=== PATIENT | female | born 2000 | race Caucasian/White ===

== ENCOUNTER 2021-01-25 09:09 | Emergency (ER) | payer OTHER ==
[2021-01-25 09:19] VITALS: TEMP 97.8
[2021-01-25] MEDS ORDERED: HYDROmorphone 0.5 MG/0.5 ML SYRINGE IVP STA (09:39)
[2021-01-25] MEDS ORDERED: SODIUM CHLORIDE 0.9% 1,000 ML IV STA (09:39)
[2021-01-25] MEDS ORDERED: ONDANSETRON 4 MG/2 ML VIAL IVP STA (09:39)
--- NOTE | 2021-01-25 09:46 | ED ---
General Adult HPI - General Chief complaint: Abdominal Pain Stated complaint: abd pain Time Seen by Provider: 01/25/21 09:26 Source: patient Mode of arrival: ambulatory Limitations: no limitations - History of Present Illness Initial comments: 20-year-old female with a past medical history of cholelithiasis presents to the emergency room for abdominal pain. Patient states she was supposed to get her gallbladder removed 2 months ago but got Covid and then never followed up again to reschedule. Patient states this was done out of town and now she is living here. Patient states around 3 AM she started to get abdominal pain. She did take Motrin but it did not seem to help. Describes it as a sharp squeezing pain in the right upper quadrant. Patient denies any fevers or chills.Patient has no other complaints at this time including shortness of breath, chest pain, nausea or vomiting, headache, or visual changes. - Related Data Home Medications Medication Instructions Recorded Confirmed Citalopram Hydrobromide [CeleXA] 20 mg PO HS 01/25/21 01/25/21 Allergies Allergy/AdvReac Type Severity Reaction Status Date / Time No Known Allergies Allergy Verified 01/25/21 09:52 Review of Systems ROS Statement: Those systems with pertinent positive or pertinent negative responses have been documented in the HPI. ROS Other: All systems not noted in ROS Statement are negative. Past Medical History Additional Past Medical History / Comment(s): gallstones History of Any Multi-Drug Resistant Organisms: None Reported Past Surgical History: No Surgical Hx Reported Past Psychological History: Depression Smoking Status: Never smoker Past Alcohol Use History: None Reported Past Drug Use History: None Reported General Exam Limitations: no limitations General appearance: alert, in no apparent distress Head exam: Present: atraumatic Eye exam: Present: normal appearance, PERRL, EOMI. Absent: scleral icterus, conjunctival injection ENT exam: Present: normal exam, mucous membranes moist Neck exam: Present: normal inspection, full ROM. Absent: tenderness Respiratory exam: Present: normal lung sounds bilaterally. Absent: respiratory distress, wheezes Cardiovascular Exam: Present: regular rate, normal rhythm, normal heart sounds GI/Abdominal exam: Present: soft, tenderness (Right upper quadrant and epigastric tenderness. No lower abdominal tenderness.), normal bowel sounds. Absent: distended, guarding, rebound Course Vital Signs 01/25/21 09:17 Temperature 97.8 F Pulse Rate 83 Respiratory 17 Rate Blood Pressure 125/83 O2 Sat by Pulse 99 Oximetry Medical Decision Making - Medical Decision Making Vitals are stable. Patient is well-appearing. CBC and CMP are unremarkable. Amylase and lipase are normal. Urinalysis does not show any evidence of . No signficant evidence of infection. Ultrasound does show biliary sludge and cholelithiasis without evidence for acute cholecystitis. Patient was given pain medication and did have improvement in pain. At this time patient can be discharged home with outpatient surgical follow-up. She will return here for any worsening symptoms or fevers. - Lab Data Result diagrams: 01/25/21 09:40 01/25/21 09:40 Lab Results 01/25/21 01/25/21 01/25/21 Range/Units 09:40 09:40 09:40 WBC 10.4 (3.8-10.6) k/uL RBC 4.91 (3.80-5.40) m/uL Hgb 14.4 (11.4-16.0) gm/dL Hct 43.6 (34.0-46.0) % MCV 88.8 (80.0-100.0) fL MCH 29.4 (25.0-35.0) pg MCHC 33.1 (31.0-37.0) g/dL RDW 13.8 (11.5-15.5) % Plt Count 310 (150-450) k/uL MPV 7.3 Neutrophils % 71 % Lymphocytes % 20 % Monocytes % 5 % Eosinophils % 1 % Basophils % 1 % Neutrophils # 7.4 (1.3-7.7) k/uL Lymphocytes # 2.1 (1.0-4.8) k/uL Monocytes # 0.5 (0-1.0) k/uL Eosinophils # 0.1 (0-0.7) k/uL Basophils # 0.1 (0-0.2) k/uL Sodium (137-145) mmol/L Potassium (3.5-5.1) mmol/L Chloride (98-107) mmol/L Carbon Dioxide (22-30) mmol/L Anion Gap mmol/L BUN (7-17) mg/dL Creatinine (0.52-1.04) mg/dL Est GFR (CKD-EPI)AfAm (>60 ml/min/1.73 sqM) Est GFR (CKD-EPI)NonAf (>60 ml/min/1.73 sqM) Glucose (74-99) mg/dL Plasma Lactic Acid [place] (0.7-2.0) mmol/L Calcium (8.4-10.2) mg/dL Total Bilirubin (0.2-1.3) mg/dL AST (14-36) U/L ALT (4-34) U/L Alkaline Phosphatase (38-126) U/L Total Protein (6.3-8.2) g/dL Albumin (3.5-5.0) g/dL Amylase (30-110) U/L Lipase (23-300) U/L Urine Color Yellow Urine Appearance Cloudy H (Clear) Urine pH 5.5 (5.0-8.0) Ur Specific [place] 1.018 (1.001-1.035) Urine Protein Negative (Negative) Urine Glucose (UA) Negative (Negative) Urine Ketones Negative (Negative) Urine Blood Negative (Negative) Urine Nitrite Negative (Negative) Urine Bilirubin Negative (Negative) Urine Urobilinogen <2.0 (<2.0) mg/dL Ur Leukocyte Esterase Large H (Negative) Urine RBC 4 (0-5) /hpf Urine WBC 6 H (0-5) /hpf Ur Squamous Epith Cells 10 H (0-4) /hpf Urine Bacteria Occasional H (None) /hpf Urine Mucus Rare H (None) /hpf Urine HCG, Qual Not Detected (Not Detectd) 01/25/21 01/25/21 Range/Units 09:40 09:40 WBC (3.8-10.6) k/uL RBC (3.80-5.40) m/uL Hgb (11.4-16.0) gm/dL Hct (34.0-46.0) % MCV (80.0-100.0) fL MCH (25.0-35.0) pg MCHC (31.0-37.0) g/dL RDW (11.5-15.5) % Plt Count (150-450) k/uL MPV Neutrophils % % Lymphocytes % % Monocytes % % Eosinophils % % Basophils % % Neutrophils # (1.3-7.7) k/uL Lymphocytes # (1.0-4.8) k/uL Monocytes # (0-1.0) k/uL Eosinophils # (0-0.7) k/uL Basophils # (0-0.2) k/uL Sodium 138 (137-145) mmol/L Potassium 4.4 (3.5-5.1) mmol/L Chloride 107 (98-107) mmol/L Carbon Dioxide 18 L (22-30) mmol/L Anion Gap 13 mmol/L BUN 14 (7-17) mg/dL Creatinine 0.52 (0.52-1.04) mg/dL Est GFR (CKD-EPI)AfAm >90 (>60 ml/min/1.73 sqM) Est GFR (CKD-EPI)NonAf >90 (>60 ml/min/1.73 sqM) Glucose 115 H (74-99) mg/dL Plasma Lactic Acid [place]hang 1.3 (0.7-2.0) mmol/L Calcium 9.9 (8.4-10.2) mg/dL Total Bilirubin 0.4 (0.2-1.3) mg/dL AST 26 (14-36) U/L ALT 20 (4-34) U/L Alkaline Phosphatase 79 (38-126) U/L Total Protein 7.9 (6.3-8.2) g/dL Albumin 4.5 (3.5-5.0) g/dL Amylase 52 (30-110) U/L Lipase 85 (23-300) U/L Urine Color Urine Appearance (Clear) Urine pH (5.0-8.0) Ur Specific [place] (1.001-1.035) Urine Protein (Negative) Urine Glucose (UA) (Negative) Urine Ketones (Negative) Urine Blood (Negative) Urine Nitrite (Negative) Urine Bilirubin (Negative) Urine Urobilinogen (<2.0) mg/dL Ur Leukocyte Esterase (Negative) Urine RBC (0-5) /hpf Urine WBC (0-5) /hpf Ur Squamous Epith Cells (0-4) /hpf Urine Bacteria (None) /hpf Urine Mucus (None) /hpf Urine HCG, Qual (Not Detectd) Disposition Clinical Impression: Cholelithiasis Disposition: HOME SELF-CARE Condition: Good Instructions (If sedation given, give patient instructions): Low Fat Diet (ED), Gallstones (ED) Additional Instructions: Please call surgeon first thing tomorrow morning for an appointment. Continue to take Motrin and Tylenol for pain. Stick to a low-fat diet as fatty foods w ill trigger pain. Return to the emergency room for worsening symptoms. Is patient prescribed a controlled substance at d/c from ED?: No Referrals: Keren Luong DO [Doctor of Osteopathic Medicine] - 1-2 days Time of Disposition: 11:07
[2021-01-25 09:50] LABS: Basophils # (A) 0.1 k/uL (0-0.2); Basophils % (A) 1 %; Eosinophils # (A) 0.1 k/uL (0-0.7); Eosinophils % (A) 1 %; HCT 43.6 % (34.0-46.0); HGB 14.4 gm/dL (11.4-16.0); Lymphocytes # (A) 2.1 k/uL (1.0-4.8); Lymphocytes % (A) 20 %; MCH 29.4 pg (25.0-35.0); MCHC 33.1 g/dL (31.0-37.0); MCV 88.8 fL (80.0-100.0); Mean Platelet Volume 7.3; Monocytes # (A) 0.5 k/uL (0-1.0); Monocytes % (A) 5 %; Neutrophils # (A) 7.4 k/uL (1.3-7.7); Neutrophils % (A) 71 %; Platelet Count 310 k/uL (150-450); RBC 4.91 m/uL (3.80-5.40); RDW 13.8 % (11.5-15.5); WBC 10.4 k/uL (3.8-10.6)
[2021-01-25 10:04] LABS: ALT 20 U/L (4-34); African American GFR (CKD) >90 (>60 ml/min/1.73 sqM); Albumin 4.5 g/dL (3.5-5.0); Amylase 52 U/L (30-110); Anion Gap 13 mmol/L; Blood Urea Nitrogen 14 mg/dL (7-17); Calcium 9.9 mg/dL (8.4-10.2); Carbon Dioxide 18 mmol/L (22-30); Chloride 107 mmol/L (98-107); Glucose 115 mg/dL (74-99); Lipase 85 U/L (23-300); Non-African American GFR(CKD) >90 (>60 ml/min/1.73 sqM); Sodium 138 mmol/L (137-145); Total Bilirubin 0.4 mg/dL (0.2-1.3); Total Protein 7.9 g/dL (6.3-8.2)
[2021-01-25 10:15] LABS: AST 26 U/L (14-36); Alkaline Phosphatase 79 U/L (38-126); Potassium 4.4 mmol/L (3.5-5.1)
[2021-01-25 10:18] LABS: Appearance,Urine Cloudy (Clear); Bacteria,Urine Occasional /hpf; Bilirubin,Urine Negative (Negative); Blood,Urine Negative (Negative); Color,Urine Yellow; Glucose,Urine (UA) Negative (Negative); Ketones,Urine Negative (Negative); Leukocyte Esterase,Urine Large (Negative); Mucus,Urine Rare /hpf; Nitrite,Urine Negative (Negative); PH, Urine 5.5 (5.0-8.0); Protein,Urine Negative (Negative); RBC,Urine 4 /hpf (0-5); Specific Gravity,Urine 1.018 (1.001-1.035); Squamous Epithelial Cell,Urine 10 /hpf (0-4); Urobilinogen,Urine <2.0 mg/dL (<2.0); WBC,Urine 6 /hpf (0-5)
--- NOTE | 2021-01-25 10:30 | US ---
EXAMINATION TYPE: US gallbladder DATE OF EXAM: 01/25/2021 COMPARISON: NONE CLINICAL HISTORY: pain. EXAM MEASUREMENTS: Liver Length: 14.7 cm Gallbladder Wall: 0.2 cm CBD: 0.5 cm Right Kidney: 12.0 x 4.0 x 4.5 cm Pancreas: Portions visualized wnl, partially obscured by bowel gas Liver: wnl, unable to see dome due to body habitus Gallbladder: probable sludge, cholelithiasis without wall thickening Evidence for sonographic Turner's sign: no CBD: wnl Right Kidney: No hydronephrosis or masses as seen partially obscured by overlying bowel IMPRESSION: Biliary sludge and cholelithiasis without evidence for acute cholecystitis.
[2021-01-25 11:16] VITALS: BP 122/80; PULSE 77; RESP 18
== END 2021-01-25 11:16 | disposition home or self-care (01) ==
LOC: EC 09:09
DX: K80.20 Calculus of gallbladder without cholecystitis without obstruction (principal)
CPT/HCPCS: 36415; 80053; 82150; 83605; 83690; 85025; 81001; 81025; 76705; 99284; 96374; 96375; 96361; J2405; J1170

== ENCOUNTER 2021-09-19 15:34 | Outpatient (CLI) | payer OTHER ==
[2021-09-19 16:41] VITALS: BP 127/71; PULSE 96; RESP 18; TEMP 96.8
--- NOTE | 2021-09-20 09:07 | P.MSEPDOC ---
Presenting Problems - Arrival Data Date of Arrival on Unit: 09/19/21 Time of Arrival on Unit: 15:34 Mode of Transport: Ambulatory - Complaint OB-Reason for Admission/Chief Complaint: Pain Comment: right upper quadrant pain currently 4/10, pt states at 1400 was 10/10, pt was unable to stand, pt vomited x1 also. at this time pt resting in bed not in distress, on phone. pt states she just wanted to make sure everything was okay with the baby and but that she has a HX of gall bladder stones she was previously scheduled for cholecystectomy but procedure was cancelled due to her becoming . Pt states this pain feels the same as the gall bladder pain she has had in the past. Medical History - Information : 2 Para: 1 Term: 1 : 0 Abortions: Spontaneous or Elective: 0 Number of Living Children: 0 - Gestational Age Gestational Age by CHANDAN (wks/days): 29 Weeks and 5 Days - History Complications: No Care Review of Systems - Review of Systems Constitutional: No problems Breast: No problems ENT: No problems Cardiovascular: No problems Respiratory: No problems Gastrointestinal: No problems Genitourinary: No problems Musculoskeletal: No problems Neurological: No problems Skin: No problems Vital Signs - Temperature Temperature: 96.8 F Temperature Source: Temporal Artery Scan - Pulse Right Pulse Oximetery Pulse Rate: 96 Pulse Assessment Method: Pulse Oximetry - Respirations Respiratory Rate: 18 Oxygen Delivery Method: Room Air O2 Sat by Pulse Oximetry: 98 - Blood Pressure Right Arm Blood Pressure: 127/71 Blood Pressure Mean: 89 Blood Pressure Source: Automatic Cuff Medical Screen Scoring - Uterine Contractions Frequency From (mins): 0 Frequency To (mins): 0 - Assessment - Baby A Baseline FHR: 145 Heart Rate - NICHD Category: Category I (Normal) NST: Reactive Physician Notification - Physician Notified Physician Notified Date: 09/19/21 Physician Notified Time: 16:20 Physician: Tiara Dobbins Order Received: Yes (order to discharge patient with instructions for diet.) Maternal Triage Index - Maternal Triage Index Presenting for scheduled procedure w/no complaint: No - Stat/Priority 1 Stat Priority 1: No - Urgent/Priority 2 Urgent Priority 2: No - Prompt/Priority 3 Prompt Priority 3: No - Non-Urgent/Priority 4 Non-Urgent Priority 4: Yes Criteria Met for Priority 4: concerns for gall bladder pain Disposition - Disposition OB Disposition: Physician follow up in office, Discharge to home Discharge Date: 09/19/21 Discharge Time: 16:25 I agree with the RN Medical Screening Exam: Yes Case reviewed; plan agreed upon as documented in EMR&OBIX.: Yes Diagnosis: NONINFECTIVE GASTROENTERITIS AND COLITIS, UNSPECIFIED
== END 2021-09-19 16:25 | disposition home or self-care (01) ==
LOC: FBPOP 15:34
PROVIDERS: ATTEND Obstetrics & Gynecology
DX: O99.613 Diseases of the digestive system complicating pregnancy, third trimester (principal); K52.9 Noninfective gastroenteritis and colitis, unspecified; Z3A.29 29 weeks gestation of pregnancy; Z91.040 Latex allergy status
CPT/HCPCS: 59025; G0463; 99213

== ENCOUNTER 2021-11-24 05:58 | Inpatient (IN) | payer OTHER ==
[2021-11-24] MEDS ORDERED: CARBOPROST TROMETHAMINE 250 MCG/ML 1 ML AMP IM PRN (06:40)
[2021-11-24] MEDS ORDERED: TERBUTALINE 1 MG/ML VIAL SQ PRN (06:40)
[2021-11-24] MEDS ORDERED: OXYTOCIN 10 UNIT/ML 1 ML VIAL IM PRN (06:40)
[2021-11-24] MEDS ORDERED: LIDOCAINE 0.5% (PF) 5 MG/ML (50 ML SDV) SQ PRN (06:40)
[2021-11-24] MEDS ORDERED: METHYLERGONOVINE 0.2 MG/ML 1 ML AMP IM PRN (06:40)
[2021-11-24] MEDS ORDERED: OXYTOCIN 30 UNITS/500 ML NS 30 UNIT in SALINE 1 500ML.BAG IV SCH (06:45)
[2021-11-24] MEDS: LACTATED RINGERS 1,000 ML IV SCH ×2 (06:51→12:17)
[2021-11-24 07:25] LABS: Basophils % (A) 0 %; Eosinophils # (A) 0.1 k/uL (0-0.7); Eosinophils % (A) 1 %; HCT 36.4 % (34.0-46.0); HGB 12.5 gm/dL (11.4-16.0); Lymphocytes # (A) 2.1 k/uL (1.0-4.8); Lymphocytes % (A) 24 %; MCH 29.8 pg (25.0-35.0); MCHC 34.3 g/dL (31.0-37.0); MCV 86.7 fL (80.0-100.0); Mean Platelet Volume 8.9; Monocytes # (A) 0.4 k/uL (0-1.0); Monocytes % (A) 5 %; Neutrophils # (A) 6.1 k/uL (1.3-7.7); Neutrophils % (A) 68 %; Platelet Count 210 k/uL (150-450); RDW 13.4 % (11.5-15.5); WBC 8.9 k/uL (3.8-10.6)
[2021-11-24] MEDS ORDERED: BUTORPHANOL 1 MG/ML 1 ML VIAL IV PRN (10:28)
--- NOTE | 2021-11-24 10:59 | P.HPOB ---
History of Present Illness H&P Date: 11/24/21 Chief Complaint: Here for elective induction of labor This is a 21-year-old female 2 para 1001 EDC 11/30/2021 who presents at 39 and one sevenths weeks for induction of labor. is remarkable for polyhydramnios. Weekly nonstress testing have all been reactive. She is having rare irregular uterine contractions. Denies fluid leakage or vaginal bleeding. history significant for blood type A positive, rubella status immune. Pap smear, urine culture, gonorrhea and chlamydia cultures, group B strep cultures all negative. One-hour Glucola 138. Past medical history is significant for depression in the past, hemorrhage in the past. Past surgical history is essentially negative. Current medications vitamins, baby aspirin daily. Social history patient states, denies tobacco alcohol or drug use. She is singl e, father of the baby is present and involved. On exam patient is 5 foot 5 inches, 232 pounds, blood pressure and vital signs are normal on admission. General physical exam is within normal limits. Cervix is 3 cm dilated, 50% effaced, -2 station, vertex presentation. Artificial amniorrhexis revealed clear fluid. heart rate is consistent with reactive NST. Impression: 39 and one sevenths weeks intrauterine , here for induction of labor with polyhydramnios, all signs reassuring. Plan: Analgesic options reviewed. Oxytocin per hospital protocol. Continue close maternal and surveillance. Anticipate normal spontaneous vaginal delivery. Review of Systems Constitutional: Reports as per HPI Past Medical History Additional Past Medical History / Comment(s): gallstones History of Any Multi-Drug Resistant Organisms: None Reported Past Surgical History: No Surgical Hx Reported Additional Past Surgical History / Comment(s): stent placed in gall bladder Past Anesthesia/Blood Transfusion Reactions: No Reported Reaction Past Psychological History: Depression Smoking Status: Former smoker Past Alcohol Use History: None Reported Past Drug Use History: None Reported Medications and Allergies Home Medications Medication Instructions Recorded Confirmed Type Citalopram Hydrobromide [CeleXA] 20 mg PO HS 01/25/21 11/24/21 History Aspirin 81 mg PO DAILY 08/30/21 11/24/21 History Vit No.179/Iron/Folic 1 tab PO DAILY 08/30/21 11/24/21 History [ Tablet] Allergies Allergy/AdvReac Type Severity Reaction Status Date / Time latex Allergy Rash/Hives Verified 11/24/21 06:40 Exam Vital Signs Temp Pulse Resp BP 11/24/21 06:39 97.4 F L 103 H 16 115/69 Intake and Output 11/23/21 11/24/21 11/24/21 22:59 06:59 14:59 Other: Weight 105.233 kg see dictation pleae Results Result Diagrams: 11/24/21 06:58 Assessment and Plan Assessment: 39 and one sevenths weeks intrauterine , polyhydramnios, here for induction of labor, all signs reassuring. Plan: Oxytocin per hospital protocol. Close maternal and surveillance. Analgesic options reviewed. Anticipate normal spontaneous vaginal delivery. Methergine will be available in the room for history of hemorrhage with her first delivery. Time with Patient: Less than 30
[2021-11-24] MEDS ORDERED: ROPIVACAINE 5 MG/ML 20 ML AMPULE ONE (12:28)
[2021-11-24] MEDS ORDERED: SODIUM CHLORIDE 0.9% 100 ML BAG ONE (12:28)
[2021-11-24] MEDS ORDERED: fentaNYL (PF) 50 MCG/ML 5 ML AMP ONE (12:28)
[2021-11-24] MEDS ORDERED: ZOLPIDEM 5 MG TAB PO PRN (16:56)
[2021-11-24] MEDS ORDERED: diphenhydrAMINE 50 MG CAP PO PRN (16:56)
[2021-11-24] MEDS ORDERED: diphenhydrAMINE 25 MG CAP PO PRN (16:56)
[2021-11-24] MEDS ORDERED: diphenhydrAMINE ELIXIR 25 MG/10 ML CUP PO PRN (16:56)
[2021-11-24] MEDS ORDERED: SIMETHICONE 80 MG CHEWABLE PO PRN (16:56)
[2021-11-24] MEDS ORDERED: HYDROCORTISONE 2.5% RECTAL CREAM 30 GM TUBE RECTAL PRN (16:56)
[2021-11-24] MEDS ORDERED: diphenhydrAMINE 50 MG/ML 1 ML VIAL IVP PRN ×2 (16:56)
[2021-11-24] MEDS ORDERED: BENZOCAINE/MENTHOL SPRAY 1 GM/SPRAY AEROSOL TOPICAL PRN (16:56)
[2021-11-24] MEDS ORDERED: LANOLIN CREAM 5 GM TUBE TOPICAL PRN (16:56)
--- NOTE | 2021-11-24 16:56 | P.PROBDLV ---
Vaginal Delivery Note - . Vaginal Delivery Note: This is a 21-year-old female 2 para 1001 EDC 11/30/2021 at 39 and one sevenths weeks' gestation patient presents today for induction with favorable multiparous cervix and history of polyhydramnios. Fetus is been active throughout the . Blood type B positive, rubella status immune, group B strep cultures negative. Please see dictated history and physical for details. Oxytocin was started and titrated per hospital protocol. Epidural was placed pe r her request. She went on to labor and was judged to be completely dilated with a fair amount of pelvic pressure. Perineal body was prepped and draped in the usual sterile fashion. With excellent maternal expulsive efforts the 's head quickly crowned in the occiput anterior position. He restituted accordingly. There was no nuchal cord noted. The right or anterior shoulder was delivered easily from underneath the pubic symphysis at which time the oropharynx, nasopharynx, and external nares were all bulb suctioned. Patient was officially delivered of a liveborn male at 1632 hrs. Umbilical cord was doubly clamped and ligated, he was handed to waiting nurses for evaluation where scores of 8 and 9 at one and 5 minutes respectively were given. The placenta delivered spontaneously, it was inspected and noted to be intact with trivascular cord at 1634 hrs. Uterus is then massaged. Methergine is given prophylactically for history of hemorrhage with her first child. Careful inspection of the cervix, vagina, perineum, periurethral, and perirectal areas revealed a small first-degree perineal laceration. This was easily repaired in the usual fashion using repeat suture. Excellent reapproximation was noted. Fundus is firm and in the midline, symmetric and 18 week size upon completion of delivery. Estimated blood loss 250 mL's. Patient is requesting circumcision for her son.
[2021-11-24] MEDS: IBUPROFEN 600 MG TAB PO SCH ×2 (17:39→23:50)
[2021-11-24] MEDS: SENNOSIDES-DOCUSATE SODIUM 1 EACH TAB PO SCH (21:51)
[2021-11-25] MEDS: LACTATED RINGERS 1,000 ML IV SCH (04:07)
[2021-11-25] MEDS: ACETAMINOPHEN TAB 325 MG TAB PO PRN ×2 (04:30→15:53)
[2021-11-25 07:24] VITALS: RESP 16
[2021-11-25] MEDS: IBUPROFEN 600 MG TAB PO SCH ×3 (07:45→21:58)
[2021-11-25] MEDS: SENNOSIDES-DOCUSATE SODIUM 1 EACH TAB PO SCH ×2 (07:45→21:57)
--- NOTE | 2021-11-25 08:12 | P.PN ---
Subjective Progress Note Date: 11/25/21 Principal diagnosis: Doing well day #1 Slept well. Minimal lochia rubra. No complaints pain. Requesting discharge home. Objective - Vital Signs Vital signs: Vital Signs Temp 97.8 F 11/25/21 04:00 Pulse 74 11/25/21 04:00 Resp 16 11/25/21 04:00 BP 120/81 11/25/21 04:00 Pulse Ox 97 11/25/21 04:00 FiO2 Intake & Output 11/24/21 11/25/21 11/25/21 18:59 06:59 18:59 Intake Total 169.0 600 Output Total 410 Balance -241.0 600 Intake: IV 600 Intake, IV Titration 169.0 Amount Oxytocin 30 Units/500 ml 169.0 Ns 30 unit In Saline 1 500ml.bag @ Per Protocol IV .Q0M AYAZ Rx#:[id number] Output: Estimated Blood Loss 250 Output, Quantitative 160 Blood Loss Other: # Voids 1 2 - Constitutional General appearance: Present: average body habitus, cooperative - EENT Eyes: Present: PERRLA ENT: Present: hearing grossly normal - Respiratory Respiratory: bilateral: CTA - Cardiovascular Rhythm: regular - Gastrointestinal General gastrointestinal: Present: normal bowel sounds - Integumentary Integumentary: Present: normal - Neurologic Neurologic: Present: CNII-XII intact - Musculoskeletal Musculoskeletal: Present: gait normal, strength equal bilaterally - Psychiatric Psychiatric: Present: A&O x's 3, appropriate affect, intact judgment & insight - Labs CBC & Chem 7: 11/24/21 06:58 Assessment and Plan Assessment: Doing well first day Plan: [place] infant is in the nursery, awaiting evaluation by rn examiner. According to the nursing staff he is moaning somewhat and needs further assessment. For this reason, circumcision has been delayed. If stays an additional day, patient will stay as well. Continue therefore care. Advanced diet and activity. Time with Patient: Less than 30
--- NOTE | 2021-11-26 08:07 | P.DS ---
Providers Date of admission: 11/24/21 05:58 Expected date of discharge: 11/26/21 Attending physician: Tiara Dobbins Primary care physician: Stated None Hospital Course: This is a 21-year-old female 2 para 1001 EDC 11/30/2021 at 39 and one sevenths weeks' gestation who presented for induction with favorable cervix. Fetus is been active throughout the , blood type A+, rubella status immune, group B strep cultures negative. Please see dictated history and physical for details. With oxytocin augmentation and an epidural patient went on to deliver vaginally a liveborn male infant with scores of 8 and 9 at one and 5 minutes respectively. There was a small first-degree perineal laceration easily repaired. Estimated blood loss 250 mL's. weight 3585 g or 7 lbs. 15 oz. Please see my dictated delivery note for details. This morning the patient is judged to be in good condition for discharge home. She will use [id number] Advil or Aleve, or Motrin as needed for pain. She will call with any fevers shakes or chills, foul smelling or copious lochia, with the passage of large blood clots, with any pain not alleviated by [id number] products, or indeed with any concerns. We have discussed briefly options for contraception and we will discuss this further in the office. infant will follow-up with physician relations representative as per recommendations. Assessment: Doing well second day Patient Condition at Discharge: Good Plan - Discharge Summary New Discharge Prescriptions: No Action Citalopram Hydrobromide [CeleXA] 20 mg PO HS Aspirin 81 mg PO DAILY Vit No.179/Iron/Folic [ Tablet] 1 tab PO DAILY Discharge Medication List Citalopram Hydrobromide [CeleXA] 20 mg PO HS 01/25/21 [History] Aspirin 81 mg PO DAILY 08/30/21 [History] Vit No.179/Iron/Folic [ Tablet] 1 tab PO DAILY 08/30/21 [History] Follow up Appointment(s)/Referral(s): Tiara Dobbins MD [STAFF PHYSICIAN] - 6 Weeks
[2021-11-26] MEDS: SENNOSIDES-DOCUSATE SODIUM 1 EACH TAB PO SCH (09:09)
[2021-11-26] MEDS: IBUPROFEN 600 MG TAB PO SCH ×2 (09:09→11:10)
[2021-11-26 16:08] VITALS: BP 112/78; PULSE 99; TEMP 98.2
== END 2021-11-26 18:21 | disposition home or self-care (01) | DRG 807 ==
LOC: 4FBP 05:58
PROVIDERS: ADMIT Obstetrics & Gynecology; ATTEND Obstetrics & Gynecology
PROC: 10907ZC Drainage of Amniotic Fluid, Therapeutic from Products of Conception, Via Natural or Artificial Opening (ICD-10-PCS; principal; 2021-11-24)
PROC: 10E0XZZ Delivery of Products of Conception, External Approach (ICD-10-PCS; principal; 2021-11-24)
PROC: 0HQ9XZZ Repair Perineum Skin, External Approach (ICD-10-PCS; principal; 2021-11-24)
PROC: 4A0HXCZ Measurement of Products of Conception, Cardiac Rate, External Approach (ICD-10-PCS; principal; 2021-11-24)
DX: O40.9XX0 Polyhydramnios, unspecified trimester, not applicable or unspecified (principal); Z37.0 Single live birth; O70.0 First degree perineal laceration during delivery; O99.344 Other mental disorders complicating childbirth; O99.62 Diseases of the digestive system complicating childbirth; K80.20 Calculus of gallbladder without cholecystitis without obstruction; F32.A Depression, unspecified; Z79.82 Long term (current) use of aspirin; Z87.891 Personal history of nicotine dependence; Z91.040 Latex allergy status
CPT/HCPCS: 85025; 86850; 86900; 86901